=== PATIENT | female | born 1950 | race Caucasian/White ===

== ENCOUNTER 2023-09-11 16:01 | Emergency (ER) | payer MEDICARE ==
[~2023-09-11] VITALS: Ht 154.9 cm; Wt 102.1 kg
[2023-09-11 16:21] VITALS: BP_SYST 109; BP_DIAS 57; BP_DIAS 79; PULSE 74; PULSE 79; RESP 18; TEMP 98; TEMP 98.2; O2SAT 98
[2023-09-11 17:08] VITALS: BP 119/73; PULSE 75; RESP 18; TEMP 98.2; O2SAT 98
== END 2023-09-11 17:10 | disposition home or self-care (01) ==
LOC: ER 16:01
DX: E11.649 Type 2 diabetes mellitus with hypoglycemia without coma (principal); E11.65 Type 2 diabetes mellitus with hyperglycemia
CPT/HCPCS: 82948; 99281; 99282